=== PATIENT | male | born 2005 | race Caucasian/White ===

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

== ENCOUNTER 2023-01-22 14:11 | Emergency (ER) | payer OTHER ==
[~2023-01-22] VITALS: Ht 190.5 cm; Wt 136.1 kg
== END 2023-01-22 15:19 | disposition home or self-care (01) ==
LOC: ED 14:11
DX: S92.512A Displaced fracture of proximal phalanx of left lesser toe(s), initial encounter for closed fracture (principal); W22.09XA Striking against other stationary object, initial encounter; Y93.01 Activity, walking, marching and hiking; Y92.89 Other specified places as the place of occurrence of the external cause; Y99.8 Other external cause status

== ENCOUNTER → 2023-12-06 | Outpatient (CLI) | payer OTHER ==
[2023-12-06 10:18] LABS: HEMATOCRIT 44.6 % (42.0-52.0); MEAN CORPUSCULAR HGB 30.7 pg (27.0-31.0); MEAN CORPUSCULAR HGB CONC 34.5 g/dl (33.0-37.0); MEAN PLATELET VOLUME 9.6 fl (9.6-12.3); RED BLOOD COUNT 5.01 10*6/uL (4.50-5.90); RED CELL DISTRI WIDTH 12.2 % (0-14.5); WHITE BLOOD COUNT 8.2 10*3/uL (4.8-10.8)
[2023-12-06 10:48] LABS: ALKALINE PHOSPHATASE 80 U/L (46-116); BUN 11 mg/dl (9-23); CHLORIDE 105 mmol/L (98-107); CHOLESTEROL 186 mg/dL (<200); LDL CHOLESTEROL 112 mg/dL (9-159); SGPT/ALT 31 U/L (5-49); TOTAL PROTEIN 7.2 gm/dL (6.0-8.0); TRIGLYCERIDES 105 mg/dl (<150)
== END | disposition home or self-care (01) ==
LOC: LAB 09:49
PROVIDERS: ATTEND Family Medicine
DX: E66.9 Obesity, unspecified (principal)

== ENCOUNTER 2024-04-15 12:39 | Emergency (ER) | payer OTHER ==
[~2024-04-15] VITALS: Ht 187.9 cm; Wt 145.1 kg
[2024-04-15] MEDS ORDERED: MELOXICAM7.5 MG PO (14:11)
== END 2024-04-15 14:24 | disposition home or self-care (01) ==
LOC: ED 12:39
DX: S93.401A Sprain of unspecified ligament of right ankle, initial encounter (principal); S93.601A Unspecified sprain of right foot, initial encounter; X50.1XXA Overexertion from prolonged static or awkward postures, initial encounter; Y93.89 Activity, other specified; Y92.89 Other specified places as the place of occurrence of the external cause; Y99.8 Other external cause status